=== PATIENT | female | born 1955 | race Caucasian/White ===

== ENCOUNTER 2018-08-18 00:50 | Observation (INO) | payer OTHER ==
[~2018-08-18] VITALS: Ht 154.9 cm; Wt 100.7 kg
[2018-08-18] VITALS (15 sets, daily range): BP systolic 113–159; BP diastolic 53–82
[~2018-08-18 00:50] MED LIST: FLUO-176 PO; FLUO-177 PO; LEVO-3 PO
[2018-08-18] MEDS: FAMOTIDINE 20 MG/50 ML PREMIX IVPB ONE ×2 (05:27→05:30)
[2018-08-18] MEDS ORDERED: CELECOXIB 200 MG CAP PO ONE ×2 (05:30→06:15)
[2018-08-18] MEDS ORDERED: FAMOTIDINE 20 MG TAB PO ONE (05:30)
[2018-08-18] MEDS ORDERED: ceFAZolin(*) 2GM/D5W 50ML 50 ML IVPB ONE (06:15)
[2018-08-18] MEDS ORDERED: NORMOSOL R SOLN(*) 1000 ML BAG 1,000 ML IV PRN (06:15)
[2018-08-18] MEDS ORDERED: MIDAZOLAM 2 MG/2 ML VIAL IVP PRN (06:15)
[2018-08-18] MEDS ORDERED: PREGABALIN 150 MG CAPSULE PO ONE (06:15)
[2018-08-18] MEDS ORDERED: ACETAMINOPHEN 500 MG TAB PO ONE (06:15)
[2018-08-18] MEDS ORDERED: LIDOCAINE/SOD BICARB 8.4% SYR ID ONE (06:15)
[2018-08-18] MEDS ORDERED: ROPIVACAINE 0.2% 400 MG/200ML 250 ML CONINFUS ONE (06:15)
[2018-08-18] MEDS ORDERED: PROPOFOL EMUL(*) 10MG/ML 20 ML 20 ML ONE (06:30)
[2018-08-18] MEDS ORDERED: DEXAMETHASONE SOD PHOS 10MG/ML ONE (06:30)
[2018-08-18] MEDS ORDERED: LIDOCAINE MPF 1% 5 ML VIAL ONE (06:30)
[2018-08-18] MEDS ORDERED: ONDANSETRON 4 MG/2 ML VIAL ONE (06:30)
[2018-08-18] MEDS ORDERED: fentaNYL CITR 250 MCG/5 ML AMP ONE (06:30)
[2018-08-18] MEDS ORDERED: ROPIVACAINE 0.2% 20 ML VIAL ONE (06:34)
[2018-08-18] MEDS ORDERED: EPINEPHrine HCL 1 MG/ML AMP ONE (06:34)
[2018-08-18] MEDS ORDERED: ROPIVACAINE 0.5% 20 ML VIAL ONE (06:34)
[2018-08-18] MEDS ORDERED: HALOPERIDOL LACT 5 MG/ML VIAL IM ONE (06:39)
[2018-08-18] MEDS ORDERED: KETAMINE HCL 200 MG/20 ML MDV ONE (06:44)
[2018-08-18] MEDS ORDERED: ePHEDrine 25 MG/5 ML DISP.SYR IVP ONE ×2 (07:29→07:46)
[2018-08-18] MEDS ORDERED: DEXMEDETOMIDINE HCL 200 MCG/2 ML IV ONE (07:30)
[2018-08-18] MEDS ORDERED: NS 0.9% IRRIGATION 1000ML PLCT IR ONE (08:43)
[2018-08-18] MEDS ORDERED: LABETALOL HCL 25 MG/5 ML SYRINGE ONE (09:07)
--- NOTE | 2018-08-18 09:37 | RADIOLOGY IMAGING REPORT ---
FACILITY: [facility] PATIENT NAME: Marisela Keenan : 1955 MR: [id number] V: [id number] EXAM DATE: ORDERING PHYSICIAN: DIONTE ELLISON TECHNOLOGIST: Location: [facility] Patient: Marisela Keenan : 1955 Visit/Account:[id number] Date of Sevice: 08/18/2018 Left ankle, two images. HISTORY: Left total ankle arthroplasty. COMPARISON: None. The images lack side markers. The articular surfaces of the tail are dome and tibial plafond and hav e been resected and replaced with prosthetic components. Alignment is unremarkable. A few small martine cific densities project on the soft tissues. Drill holes are present in the distal tibial shaft. FLUOROSCOPY TIME: Three minutes 31 seconds. IMPRESSION: Unremarkable talotibial arthroplasty. Report Dictated By: Toby Brunson MD at 08/18/2018 9:29 AM Report E-Signed By: Toby Brunson MD at 08/18/2018 9:32 AM WSN:[email or web address]
--- NOTE | 2018-08-18 10:57 | OPERATIVE REPORT 1 ---
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 PROCEDURE PERFORMED Total ankle replacement. ESTIMATED BLOOD LOSS Minimal. TOURNIQUET TIME Under two hours. DESCRIPTION OF PROCEDURE The patient was brought to the operating room and placed in the supine position. A bump placed under the right hip to realign the right lower extremity. She was prepped and draped in normal sterile fashion using Prevail. Sterile stockinettes and U-drape were placed on the lower extremity. Stockinette was incised from above knee and held with Coban. Esmarch was then used to exsanguinate the lower extremity and tourniquet turned up to 300 mmHg. An anterior incision was made just lateral to the anterior tibialis tendon. Skin was incised down to the subcutaneous and the subcutaneous bluntly dissected down to the neurovascular bundle. Neurovascular bundle was identified and pushed off to the side. Sharp dissection was then taken down to the ankle joint. Blunt dissection around the ankle joint both medially and laterally were done subperiosteally. At this point, I was able to remove all of the osteophytes anteriorly on the anterior talus and on the anterior tibia. At this point, we did find that the alignment of the tibia, which we had decided on preoperative, the actual distal tibia was in slight varus, which this was confirmed during our visualization. We did find that the medial joint had absolutely no joint at all. It was completely arthritic, bone on bone. At this point, we took off the anterior portion of the tibia so we could get to the peak of the plafond. We then placed a pin into tibial tubercle and placed our long limb alignment guide on the anterior tibia. Checking it both laterally, medially and coronally, we were able to make sure it was in alignment with the tibia. I then placed one pin into the medial hole distally to hold it in place. We then brought the distal end of the measuring guide up 8 to 9 mm but realized that was a little bit too much for the deformity that she had so we brought it down and we only took off about 5 mm of distal tibia. Once the tibial alignment guide was placed, you could definitely see that the distal tibia had an alignment issue, a growth issue that was in varus. We then placed our distal tibial cutting guide, measured it out, figured that we could get at least a 1 tibial plate. Therefore, we put a 1 cutting guide in, put multiple drills medial and latera, checked on AP, lateral and oblique and made sure we had excellent alignment of the cutting guide and then we made our distal tibial cut. Once that was done, we actually removed the guide, removed the pins. We were able to finish the medial cut using an osteotome and a lateral cut using an osteotome as well and then we were able to remove the distal tibial cut without any difficulty using a rongeur and an osteotome. Once that was completely removed, we then placed our pin into the talus using the talar alignment guide and got it so we were right into the posterior aspect of the posterior facet. Once we had that in position, we then placed our talar cutting guide on. Using lamina spreaders, we were able to make sure the tibial cutting guide was laying flat on the tibia, which it was. We checked on lateral x-ray. We then pinned it, removed the talar guide and made our talar cut over the pins without any difficulty, placing Ribbon retractors in both medial and lateral gutters. Once that was done, we removed the pins from the talus. We then debrided the anterior talus of anymore osteophytes. We then placed our anterior chamfer, checked on fluoroscopy and made sure we had good alignment and then we pinned our anterior chamfer guide and we reamed the anterior chamfer without any difficulty, removing the anterior chamfer guide. We then finished it using a rongeur. At this point, we placed our lateral cutting guide on but in order to get it in the right position we actually trialed a 1 distal tibia and then placed the lateral talar cutting guide in, found to let it sit in the correct position so it was directly at the second metatarsal. The handle was at the second metatarsal. We then pinned it, removed the tibial guide and then we cut our lateral chamfer with a Hohmann in the gutter, malleable in the gutter to protect it. Once that was done, we then debrided the medial gutter, debrided the posterior aspect of the ankle and drilled the guide for the talar wilkerson guide. From here, we then placed the tibial guide back in. We then placed a trial tibial 0. We felt that the 0 was appropriate for the talus and it was a 1 for the tibia. We placed a 1 tibia back in with the talus and found to have excellent alignment. No laxity. There was some tightness in the ankle so we did a percutaneous lengthening of the Achilles, three holes in the back of the Achilles, one going medial, one going lateral and a third one going medial as we go up proximally. From here, we did our talar fin guide drilling. We drilled two holes and then did a large drill, reamed. We then removed that, finished the fin using an osteotome and a blunt guide. Once that was done, removed all the bone. We washed out the ankle, made sure there were no fragments left, washed it with 3L normal saline. We then placed the final prosthesis, which was a 1 tibia with an 8 mm poly, without any difficulty and then we placed the talar 0 without any difficulty. X-rays AP, lateral and oblique had excellent alignment of the tibiotalar prosthesis and good alignment and good sizing. We closed the retinaculum over top of the extensor tendons using 2-0 Vicryl in a horizontal stitch manner. From there we closed the underlayer using a 3-0 Monocryl and then a 4-0 Monocryl with Dermabond on the skin. Adaptic, 4 x 4's and big bulky dressing. The patient went to recovery with no complications. ZARINA
[2018-08-18] MEDS ORDERED: MAGNESIUM HYDROXIDE* 30ML UDCP PO PRN (11:00)
[2018-08-18] MEDS ORDERED: PROMETHAZINE 25 MG/ML 1 ML AMP IVP PRN (11:00)
[2018-08-18] MEDS ORDERED: KCL/D5LR 20 MEQ/1000 ML PREMIX 1,000 ML IV PRN (11:00)
[2018-08-18] MEDS ORDERED: ONDANSETRON 4 MG/2 ML VIAL IVP PRN (11:00)
[2018-08-18] MEDS ORDERED: diphenhydrAMINE 25 MG CAP PO PRN (11:00)
[2018-08-18] MEDS ORDERED: ACETAMINOPHEN 500 MG TAB PO PRN (11:00)
[2018-08-18] MEDS ORDERED: FLUSH 10 ML SYR IVP PRN (11:00)
[2018-08-18] MEDS ORDERED: MAGNESIUM CITRATE 300 ML BTL PO PRN (11:00)
[2018-08-18] MEDS ORDERED: BISACODYL 10 MG SUPP PR PRN (11:00)
[2018-08-18] MEDS ORDERED: KETOROLAC 30 MG/ML VIAL IVP PRN (11:00)
--- NOTE | 2018-08-18 13:09 | Hospitalist Consultation ---
History of Present Illness Requesting Physician Dr. Pulido Reason for Consult Medical Management Chief Complaint s/p left ankle replacement History of Present Illness She was admitted s/p left ankle replacement. It is reported the surgery went well and without complication. History Problems: (1) Depression Status: Chronic (2) DIANA (obstructive sleep apnea) Status: Chronic (3) Hypothyroidism Status: Chronic Home Meds Reported Medications Fluoxetine Hcl (FLUOXETINE HCL) 20 Mg Capsule, 20 MG PO QDAY, CAPSULE 08/10/18 Fluoxetine Hcl (FLUOXETINE HCL) 10 Mg Capsule, 10 MG PO QDAY, CAPSULE 08/10/18 Levothyroxine Sodium (LEVOTHYROXINE SODIUM) 100 Mcg Tablet, 100 MCG PO QDAY, TAB 08/10/18 Allergies: Coded Allergies: No Known Drug Allergies (Unverified , 08/10/18) Patient History: FH: cirrhosis FATHER, FH: stroke MOTHER, Hx Smoking: Yes (2 PPD X 20, QUIT 25 YRS AGO) Smoking Status: Former Smoker Exposure to Second Hand Smoke?: Yes Caffeine Intake: Coffee Caffeine/Cups Per Day: 3-4 CCD, GET STEVENSON IF DOESNT HAVE CAFFEINE Hx Alcohol Use: No Hx Substance Use Disorder: No Social Drug Use: Never History of IV Drug Use: No Review of Systems All Systems Reviewed/Normal: Yes, Except as Noted Exam Vital Signs Vital Signs Date Time Temp Pulse Resp B/P (MAP) Pulse Ox O2 Delivery O2 Flow Rate FiO2 08/18/18 12:30 68 123/65 (84) 93 2.0 08/18/18 11:00 12 08/18/18 11:00 97.6 Nasal Cannula General Appearance: Alert, Awake, No Acute Distress, Afebrile Neuro: No Gross deficits Cardiovascular: Regular Rate and Rhythm Respiratory: No Respiratory Distress, Clear to Auscultation GI: Abd Soft and Non-Tender Psych: Alert & Oriented X3, Appropriate Mood & Affect Assessment and Plan Problems: (1) Status post left ankle joint replacement Status: Acute Assessment & Plan: Followed by Dr. Pulido. (2) Depression Status: Chronic Assessment & Plan: She is on chronic treatment with Fluoxetine. Continue. (3) Hypothyroidism Status: Chronic Assessment & Plan: She is on chronic treatment with Levothyroxine. Continue. (4) DIANA (obstructive sleep apnea) Status: Chronic Assessment & Plan: She does use CPAP without oxygen at home. She did bring her own machine to use during admission. Venous Thromboembolism Antithrombotics Is Pt On Any Antithrombotics?: No Exam Sepsis Risk: No Definite Risk MEREDITH PARKS Aug 18, 2018 13:09
--- NOTE | 2018-08-18 16:55 | NUR ---
Physical Therapy Impression PT eval completed. Pt notes that she still feels rather numb at this time and reports no pain or discomfort. Pt notes that she has crutches and has borrowed a knee scooter from a friend. Pt indicates 2 platform steps to enter home and her family will be staying with her to assist initially. Pt attempted knee scooter to access BR, but notes that she does not have adequate sensation in cason to know if she is supported appropriately on the cason pad. Pt then utilized the FWW for remainder of mobility and tolerated this very well. Pt completed up/down platform step x 4 reps with FWW and SBA/CGA. Pt required a sitting rest break after 2 reps. Pt indicates that she feels safest with FWW currently and pt has requested that her son obtain a FWW for her to use at home. Currently, pt has met PT goals, however, PT will re-eval in the morning to ensure pt is still able to be functionally mobile as her block begins to wear off. Physical Therapy Goals PT goals met with initial visit while block still intact; will review again in am to ensure functional mobility as this wears off. 1. Pt to be CGA/Min assist for bed mobility and supine<>sit trnsfrs 2. Pt to be SBA/Mod indep with sit to/from stand transfers 3. Pt to be SBA/CGA for up/down platform step with FWW 4. Pt to ambulate 50' with FWW and SBA/Modified indep and NWB on L) LE. Patient's Goals
[2018-08-18] MEDS ORDERED: NS(*) 0.9% 250 ML BAG 250 ML ONE (17:14)
[2018-08-18] MEDS: ceFAZolin(*) 1 GM VIAL 1 GM in NS(*) 0.9% 100 ML ADDVANT BAG 100 ML IVPB SCH (17:20)
[2018-08-19] MEDS: ceFAZolin(*) 1 GM VIAL 1 GM in NS(*) 0.9% 100 ML ADDVANT BAG 100 ML IVPB SCH ×2 (00:30→09:04)
[2018-08-19 04:00] VITALS: BP 124/56
[2018-08-19] MEDS ORDERED: LEVOTHYROXINE SOD 0.1 MG TAB PO SCH (06:00)
[2018-08-19 08:54] VITALS: BP 118/69
[2018-08-19 08:55] VITALS: Ht 154.9 cm; Wt 100.7 kg
--- NOTE | 2018-08-19 08:55 | Hospitalist Progress Note ---
Subjective Progress Notes Subjective No new complaints. Physical Exam Vital Signs Date Time Temp Pulse Resp B/P (MAP) Pulse Ox O2 Delivery O2 Flow Rate FiO2 08/19/18 04:00 70 18 124/56 (78) 95 CPAP 1.0 08/18/18 21:30 98.0 Intake and Output 08/19/18 07:00 Intake Total 2060 ml Balance 2060 ml Intake Oral 950 ml IV Total 1110 ml # Voids 5 General Appearance: Alert, Awake, No Acute Distress Cardiovascular: Regular Rate and Rhythm GI: Soft and Non-Tender Extremities: Warm, Perfused Psych: Appropriate Mood & Affect Assessment and Plan Problems: (1) Status post left ankle joint replacement Status: Acute Assessment & Plan: Followed by Dr. Pulido/orthopedics. The patient has been up and is moving well after surgery. (2) Depression Status: Chronic Assessment & Plan: She is on chronic treatment with Fluoxetine. Continue. (3) Hypothyroidism Status: Chronic Assessment & Plan: She is on chronic treatment with Levothyroxine. Continue. (4) DIANA (obstructive sleep apnea) Status: Chronic Assessment & Plan: She does use CPAP without oxygen at home. She did bring her own machine to use during admission. Exam Sepsis Risk: No Definite Risk LONDON FLYNN MD Aug 19, 2018 08:55
[2018-08-19] MEDS ORDERED: FLUoxetine HCL 20 MG CAP PO SCH (09:00)
[2018-08-19] MEDS ORDERED: FLUoxetine HCL 10 MG CAP PO SCH (09:00)
== END 2018-08-19 10:47 | disposition home or self-care (01) ==
LOC: OR 00:50 → MED 11:00
PROVIDERS: ADMIT Orthopaedic Surgery; ATTEND Orthopaedic Surgery
DX: M13.872 Other specified arthritis, left ankle and foot (principal); M21.172 Varus deformity, not elsewhere classified, left ankle
CPT/HCPCS: 27702; 76000; 76942; 96372; 97116; 97161; 97530; C1776; G0378; J0171; J0690; J1100; J1630; J2001; J2250; J2405; J2704; J2795; J3010; J3490; J7050